=== PATIENT | female | born 1965 | race Two or more races ===

== ENCOUNTER 2023-01-05 13:10 | Emergency (ER) | payer MEDICAID, OTHER ==
[~2023-01-05] VITALS: Ht 157.5 cm; Wt 71.7 kg
--- NOTE | 2023-01-05 14:08 | NUR ---
HEADACHE/CHEST CONGESTION AND GENERALIZED BODY ACHE SINCE YESTERDAY. THE PATIENT RATES PAINS 5/10. IN ROOM AIR AND DENIES SOB. RESPIRATION REGULAR AND UNLABORED. WILL CONTINUE TO MONITOR THE PATIENT.
--- NOTE | 2023-01-05 14:48 | NUR ---
collected Covid and Influenca swabs
[2023-01-05 15:06] LABS: BASOPHILS % (AUTO) 0.5 % (0.0-2.0); EOSINOPHILS % (AUTO) 5.4 % (0.0-6.0); HEMATOCRIT 45 % (33-45); HEMOGLOBIN 14.7 g/dL (11.5-14.8); LYMPHOCYTES # (AUTO) 0.8 K/uL (0.8-4.8); LYMPHOCYTES % (AUTO) 10.3 % (20.0-44.0); MEAN CORPUSCULAR HGB CONC 33 g/dl (31.0-36.0); MEAN CORPUSCULAR VOLUME 85 fL (82-100); MONOCYTES # (AUTO) 0.7 K/uL (0.1-1.30); MONOCYTES % (AUTO) 8.4 % (2.0-12.0); NEUTROPHILS # (AUTO) 6.1 K/uL (1.8-8.9); NEUTROPHILS % (AUTO) 75.4 % (43.0-81.0); PLATELET COUNT (AUTO) 278 K/uL (150-450); RED BLOOD CELL COUNT(AUTO) 5.29 MIL/uL (4.0-5.2); WHITE BLOOD COUNT (AUTO) 8.1 K/uL (4.3-11.0)
--- NOTE | 2023-01-05 15:08 | NUR ---
STREP SWAB DONE AND SENT TO THE LAB
[2023-01-05 15:25] LABS: CALCIUM, SERUM 9.2 mg/dL (8.5-10.1); CARBON DIOXIDE 27 mmol/L (21-32); CHLORIDE 104 mmol/L (98-107); CREATININE 0.7 mg/dL (0.6-1.3); GLUCOSE 107 mg/dL (74-106); POTASSIUM 3.6 mmol/L (3.5-5.1); SODIUM SERUM 139 mmol/L (136-145); UREA NITROGEN, BLOOD 9 mg/dL (7-18)
[2023-01-05] MEDS ORDERED: AMOXICILLIN TRIHYDRATE 500 MG CAPSULE PO ONE (17:30)
[2023-01-05] MEDS ORDERED: DEXAMETHASONE 1 MG TABLET PO ONE (17:30)
[2023-01-05] MEDS ORDERED: AMOX875T2 PO (17:31)
[2023-01-05] MEDS ORDERED: AMOX/CLAVULANATE 875 MG TABLET ONE (17:55)
[2023-01-05] MEDS ORDERED: DEXAMETHASONE 4 MG TABLET ONE (17:55)
[2023-01-05 18:22] VITALS: BP 143/82
--- NOTE | 2023-01-05 18:23 | NUR ---
Patient discharged to home in stable condition. Written and verbal after care instructions given. Patient verbalizes understanding of instruction.
== END 2023-01-05 18:23 | disposition home or self-care (01) ==
LOC: ER 13:16
DX: J02.0 Streptococcal pharyngitis (principal); R07.89 Other chest pain; M79.10 Myalgia, unspecified site; Z79.899 Other long term (current) drug therapy; Z20.822 Contact with and (suspected) exposure to COVID-19
CPT/HCPCS: 99285; 71045; 87426; 93005; 87804 ×2; 84145; 85025; 80048; 36415; 87880; 84484 ×2; J8540; C9803; 86403-TC